=== PATIENT | female | born 1960 | race Two or more races ===

== ENCOUNTER 2017-07-21 09:34 | Inpatient (IN) | payer MEDICAID ==
--- NOTE | 2017-07-21 09:58 | ED Physician Chart ---
ED Chief Complaint/HPI - Patient Information Date Seen:: 07/21/17 Time Seen:: 09:48 Chief Complaint:: Cough History of Present Illness:: onset x 4 days of cough, dyspnea, fever, and congestion; no report of H/As, S/T , neck pain, C/P, Abd. Pain, A/N/V/D/C, chills, or urinary s/s Allergies:: Allergies Allergy/AdvReac Type Severity Reaction Status Date / Time No Known Allergies Allergy Verified 07/21/17 09:41 Vitals:: Vital Signs - 8 hr 07/21/17 09:48 Temp 97.3 F HR 88 RR 22 BP 119/74 O2 Sat % 98 Historian:: Patient Review:: Nurse's Note Reviewed ED Review of Systems - Review of Systems General/Constitutional: Fever, No chills, No weight loss, No weakness, No diaphoresis, No edema, No loss of appetite Skin: No skin lesions, No rash, No bruising Head: No headache, No light-headedness Eyes: No loss of vision, No pain, No diplopia ENT: No earache, Nasal drainage, No sore throat, No tinnitus Neck: No neck pain, No swelling, No thyromegaly, No stiffness, No mass noted Cardio Vascular: No chest pain, No palpitations, No PND, No orthopnea, No edema Pulmonary: SOB, Cough, No sputum, Wheezing GI: No nausea, No vomiting, No diarrhea, No pain, No melena, No hematochezia, No constipation, No hematemesis G/U: No dysuria, No frequency, No hematuria, No nacturia Electroformer: No vaginal discharge, No abnormal vaginal bleed, No contraction Musculoskeletal: No bone or joint pain, No back pain, No muscle pain Endocrine: No polyuria, No polydipsia Psychiatric: No prior psych history, No depression, No anxiety, No suicidal ideation, No homicidal ideation, No auditory hallucination, No visual hallucination Hematopoietic: No bruising, No lymphadenopathy Allergic/Immuno: No urticaria, No angioedema Neurological: No syncope, No focal symptoms, No weakness, No paresthesia, No headache, No seizure, No dizziness, No confusion, No vertigo ED Past Medical History - Past Medical History Obtainable: Yes Past Medical History: Asthma/COPD Family History: HTN Social History: Non Smoker, No Alcohol, No Drug Use, Surgical History: None Psychiatricy History: None Medication: Reviewed Family Medical History - Family Member Mother History Unknown: Yes ED Physical Exam - Physical Examination General/Constitutional: Awake, Well-developed, well-nourished, Alert, No distress, GCS 15, Non-toxic appearing, Ambulatory Head: Atraumatic Eyes: Lids, conjuctiva normal, PERRL, EOMI Skin: Nl inspection, No rash, No skin lesions, No ecchymosis, Well hydrated, No lymphadenopathy ENMT: External ears, nose nl, TM canals nl, Nasal exam nl, Lips, teeth, gums nl , Oropharynx nl, Tonsils nl Neck: Nontender, Full ROM w/o pain, No JVD, No nuchal rigidity, No bruit, No mass, No stridor Respiratory: Nl effort/Exclusion Other Respiratory comments:: Lungs: + Rales and Rhonchi Cardio Vascular: RRR, No murmur, gallop, rubs, NL S1 S2, Carotid/Femoral/Distal pulses equal bilaterally GI: No tenderness/rebounding/guarding, No organomegaly, No hernia, Normal BS's, Nondistended, No mass/bruits, No McBurney tenderness : No CVA tenderness Extremities: No tenderness or effusion, Full ROM, normal strength in all extremities, No edema, Normal digits & nails Neuro/Psych: Alert/oriented, DTR's symmetric, Normal sensory exam, Normal motor strength, Judgement/insight normal, Mood normal, Normal gait, No focal deficits Misc: Normal back, No paraspinal tenderness ED Labs/Radiology/EKG Results - Lab Results Comments:: K+: 2.8; LA: 2.16 - Radiology Results Comments:: CXR: + Infiltrate - EKG Interpretations EKG Time:: 10:01 Rate & Rhythm: 72; NSR Comments:: non-specific st-t changes ED Septic Shock - . Is Septic Shock (SBP<90, OR Lactate>4 mmol\L) present?: No - <6hrs of presentation: Vital Signs: Vital Signs - 8 hr 07/21/17 09:48 Temp 97.3 F HR 88 RR 22 BP 119/74 O2 Sat % 98 ED Reassessment (Disposition) - Reassessment Reassessment Condition:: Improved - Diagnosis Diagnosis:: Sepsis; Hypokalemia; PNA; Cough; Fever; Congestion - Aftercare/Follow up Instructions Aftercare/Follow-Up Instructions:: Counseled pt regarding lab results/diagnosis & need follow up, Counseled pt & family regarding lab results/diagnosis & need follow up - Patient Disposition Discharge/Transfer:: Acute Care w/in this hosp Accepting Physician:: Dr. Barba Time Called:: 1145 Time Responded:: 11:45 Admitted to:: Med/Surg Spoke to:: Dr. Barba Admitting Medical Physician:: Dr. Barba Condition at Disposition:: Stable, Improved
[2017-07-21] MEDS ORDERED: Sodium Chloride 0.9% 1,000 ML IV ONE (09:59)
[2017-07-21 10:29] LABS: % BASOPHILS 2.2 % (0.0-2.0); % EOSINOPHILS 2.6 % (0.0-5.0); % LYMPHOCYTES 26.6 % (20.0-50.0); % MONOCYTES 5.9 % (2.0-10.0); % NEUTROPHILS 62.7 % (40.0-80.0); BASOPHILE ABSOLUTE 0.2 Th/cumm (0-0.2); EOSINOPHILE ABSOLUTE 0.3 Th/cmm (0.1-0.4); HEMATOCRIT 41.2 % (41.0-60); LYMPHOCYTE ABSOLUTE 2.6 Th/cmm (1.5-3.0); MEAN CORPUSCULAR HEMOGLOBIN 30.9 pg (27.0-31.0); MEAN CORPUSCULAR HGB CONC 33.9 pg (28.0-36.0); MEAN PLATELET VOLUME 6.6 fl; MONOCYTE ABSOLUTE 0.6 Th/cmm (0.3-1.0); NEUTROPHILE ABSOLUTE 6.2 Th/cmm (1.8-8.0); PLATELET COUNT 334 Th/cmm (150-400); RED BLOOD COUNT 4.53 Mil/cmm (3.80-5.10); WHITE BLOOD COUNT 9.9 Th/cmm (4.8-10.8)
[2017-07-21 10:43] LABS: URINE MICROSCOPIC INDICATED? YES; URINE SOURCE MIDSTREAM
[2017-07-21 10:49] LABS: INR 0.95 (0.5-1.4); PROTHROMBIN TIME (TEST) 9.9 SECONDS (9.5-11.5)
[2017-07-21 10:51] LABS: ALB/GLOB RATIO 1.1 (1.0-1.8); ALBUMIN 3.3 gm/dL (3.7-5.3); ALKALINE PHOSPHATASE 71 U/L (34-104); ANION GAP 11.5 (7.0-16.0); BILIRUBIN,TOTAL 0.6 mg/dL (0.3-1.0); BUN - UREA NITROGEN 19 mg/dL (7-25); CALCIUM SERUM 8.8 mg/dL (8.6-10.3); CARBON DIOXIDE 26.3 mEq/L (21.0-31.0); CHLORIDE 103 mEq/L (98-107); CREATININE - SERUM 0.8 mg/dL (0.6-1.2); CREATININE KINASE 47 U/L (30-223); GFR AFRICAN-AMERICAN > 60.0 ml/min (>90); GFR NON AFRICAN-AMERICAN > 60.0 ml/min; GLUCOSE 114 mg/dL (70-105); SGOT 12 U/L (13-39); SGPT/ALT 13 U/L (7-52); SODIUM SERUM 138 mEq/L (136-145); TOTAL PROTEIN,SERUM 6.3 gm/dL (6.0-8.3)
[2017-07-21 10:53] LABS: POTASSIUM SERUM 2.8 mEq/L (3.5-5.1)
[2017-07-21 10:56] LABS: TROP I < 0.01 ng/mL (0.01-0.05)
[2017-07-21] MEDS ORDERED: Potassium Chloride 20 mEq ER Tab PO ONE ×2 (10:59→11:02)
[2017-07-21 11:02] LABS: URINE BILIRUBIN NEGATIVE (NEGATIVE); URINE BLOOD NEGATIVE (NEGATIVE); URINE CLARITY CLEAR (CLEAR); URINE COLOR YELLOW; URINE GLUCOSE (UA) NEGATIVE (NEGATIVE); URINE KETONE NEGATIVE (NEGATIVE); URINE LEUKOCYTE ESTERASE NEGATIVE (NEGATIVE); URINE NITRATE NEGATIVE (NEGATIVE); URINE PROTEIN NEGATIVE (NEGATIVE); URINE UROBILINOGEN 0.2 E.U./dL (0.2 - 1.0)
[2017-07-21 11:03] LABS: URINE BACTERIA OCCASIONAL /hpf (NONE SEEN); URINE EPITHELIAL CELLS RARE /lpf (FEW); URINE RBC 0-2 /hpf (0-5)
[2017-07-21] MEDS ORDERED: Levofloxacin 500mg/100mL 500 MG/100 ML BAG IV ONE ×2 (11:45→11:49)
--- NOTE | 2017-07-21 12:05 | Diagnostic Imaging Report ---
Portable chest x-ray History: Cough Allowing for portable technique the heart size is normal. No focal pulmonary parenchymal processes. No hilar or mediastinal abnormalities. Impression: No acute abnormalities.
[2017-07-21] MEDS ORDERED: Albuterol Nebulizer 2.5mg/3mL HHN PRN (15:24)
--- NOTE | 2017-07-21 17:12 | History & Physical ---
ADMIT DATE: 07/21/2017 HISTORY OF PRESENT ILLNESS: The patient came with increasing shortness of breath, cough, fever, chest congestion and was admitted for acute bronchitis, pneumonia. PAST MEDICAL HISTORY: Has a history of asthma, history of COPD. The patient is complaining of shortness of breath and cough. No bony pain, no bruising, no syncope and no other problems. REVIEW OF SYSTEMS: Otherwise, negative. PAST MEDICAL HISTORY: Again no history of smoking, drinking, history of hypertension and history of COPD. PHYSICAL EXAMINATION: GENERAL: The patient looks alert, oriented, elderly female, short of breath. HEAD: Normal. ENT: Normal. LUNGS: Bilateral rhonchi. CARDIOVASCULAR SYSTEM: S1, S2 heard. ABDOMEN: Soft. Bowel sounds are heard. LABORATORY DATA: Electrolytes showed potassium 2.8. Chest x-ray showed infiltrate, nonspecific ST-T changes. DIAGNOSES: Acute sepsis, septic pneumonia, acute bronchitis, history of COPD, history of hypertension, severe hypokalemia. PLAN: The patient is being admitted and we will treat her hypokalemia. We will give her IV antibiotics. We will have Pulmonary, Dr. Shabazz see the patient and I will follow the patient. JOB# [id number]
[2017-07-21] MEDS: Budesonide 0.5 Mg/2 mL Ud HHN SCH (20:19)
[2017-07-22 06:05] LABS: % BASOPHILS 0.2 % (0.0-2.0); % EOSINOPHILS 4.2 % (0.0-5.0); % LYMPHOCYTES 25.1 % (20.0-50.0); % MONOCYTES 7.5 % (2.0-10.0); EOSINOPHILE ABSOLUTE 0.4 Th/cmm (0.1-0.4); HEMATOCRIT 42.2 % (41.0-60); HEMOGLOBIN 14.1 gm/dL (12-16); LYMPHOCYTE ABSOLUTE 2.2 Th/cmm (1.5-3.0); MEAN CELL VOLUME 91.3 fl (81-100); MEAN CORPUSCULAR HEMOGLOBIN 30.4 pg (27.0-31.0); MEAN CORPUSCULAR HGB CONC 33.3 pg (28.0-36.0); MEAN PLATELET VOLUME 6.7 fl; MONOCYTE ABSOLUTE 0.7 Th/cmm (0.3-1.0); NEUTROPHILE ABSOLUTE 5.6 Th/cmm (1.8-8.0); PLATELET COUNT 321 Th/cmm (150-400); RED BLOOD COUNT 4.63 Mil/cmm (3.80-5.10); RED CELL DISTRIBUTION WIDTH 13.4 % (11.5-20.0); WHITE BLOOD COUNT 8.9 Th/cmm (4.8-10.8)
--- NOTE | 2017-07-22 06:57 | Consultation ---
DATE OF CONSULTATION: 07/21/[address] Barba. Thank you Dr. Barba for this consultation. HISTORY OF PRESENT ILLNESS: This is a 56-year-old female who presented with cough and congestion for a few days and was admitted for treatment and management. The patient was found to have no acute infiltrate. On presentation, the patient mentioned she has some allergies in the lung and she used to have some sort of asthma and uses inhalers, but nothing recent. PAST MEDICAL HISTORY: As above. SOCIAL HISTORY: Denies smoking, drinking. Stated exposure secondhand smoking from the . PHYSICAL EXAMINATION: GENERAL: Awake, alert, not in acute distress. VITAL SIGNS: Temperature 97.5, pulse 70, respiration is 20, blood pressure 126/82, saturation 97% on room air. HEENT: Atraumatic, normocephalic. Pupils react to light and accommodation. Ears, nose and throat are normal. NECK: Supple. No JVD. CHEST: There are a few rhonchi in bases, no wheezing. HEART: Regular rate and rhythm. ABDOMEN: Soft. EXTREMITIES: No edema. LABORATORY DATA: WBC is 9.9, hemoglobin 14.0. Sodium is 130, potassium 2.8, BUN is 19, creatinine 0.8, lactate is 2.16. IMPRESSION: This is a 56-year-old female, possibly with acute bronchitis or underlying bronchospasm and asthma. PLAN: 1. IV antibiotics. 2. Nebulizer treatments. 3. Pulmicort nebulizer. Decrease IV fluids and hopefully can be discharged tomorrow if stable. JOB# [id number]
[2017-07-22 07:00] LABS: BUN - UREA NITROGEN 19 mg/dL (7-25); CALCIUM SERUM 9.1 mg/dL (8.6-10.3); CHLORIDE 104 mEq/L (98-107); CHOLESTEROL 156 mg/dL (<200); CREATININE - SERUM 0.8 mg/dL (0.6-1.2); GFR AFRICAN-AMERICAN > 60.0 ml/min (>90); GFR NON AFRICAN-AMERICAN > 60.0 ml/min; GLUCOSE 101 mg/dL (70-105); HDL -HIGH DENSITY LIPOPROTEIN 43 mg/dL (23-92); SODIUM SERUM 138 mEq/L (136-145); TRIGLYCERIDES 151 mg/dL (<150)
[2017-07-22] MEDS: Budesonide 0.5 Mg/2 mL Ud HHN SCH ×2 (07:46→19:23)
[2017-07-22] MEDS: Levofloxacin 500mg/100mL 500 MG/100 ML BAG IV SCH (11:58)
--- NOTE | 2017-07-22 15:25 | General Progress Note ---
Subjective - Review of Systems Events since last encounter: c/o mild sob + cough no fever no pain Objective - Results Result Diagrams: 07/22/17 05:20 07/22/17 05:20 Recent Labs: Laboratory Last Values WBC 8.9 Th/cmm (4.8-10.8) 07/22/17 05:20 RBC 4.63 Mil/cmm (3.80-5.10) 07/22/17 05:20 Hgb 14.1 gm/dL (12-16) 07/22/17 05:20 Hct 42.2 % (41.0-60) 07/22/17 05:20 MCV 91.3 fl (81-100) 07/22/17 05:20 MCH 30.4 pg (27.0-31.0) 07/22/17 05:20 MCHC Differential 33.3 pg (28.0-36.0) 07/22/17 05:20 RDW 13.4 % (11.5-20.0) 07/22/17 05:20 Plt Count 321 Th/cmm (150-400) 07/22/17 05:20 MPV 6.7 fl 07/22/17 05:20 Neutrophils % 63.0 % (40.0-80.0) 07/22/17 05:20 Lymphocytes % 25.1 % (20.0-50.0) 07/22/17 05:20 Monocytes % 7.5 % (2.0-10.0) 07/22/17 05:20 Eosinophils % 4.2 % (0.0-5.0) 07/22/17 05:20 Basophils % 0.2 % (0.0-2.0) 07/22/17 05:20 PT 9.9 SECONDS (9.5-11.5) 07/21/17 10:10 INR 0.95 (0.5-1.4) 07/21/17 10:10 PTT (Actin FS) 23.5 SECONDS (26.0-38.0) L 07/21/17 10:10 Sodium 138 mEq/L (136-145) 07/22/17 05:20 Potassium 4.0 mEq/L (3.5-5.1) 07/22/17 05:20 Chloride 104 mEq/L (98-107) 07/22/17 05:20 Carbon Dioxide 27.0 mEq/L (21.0-31.0) 07/22/17 05:20 Anion Gap 11.0 (7.0-16.0) 07/22/17 05:20 BUN 19 mg/dL (7-25) 07/22/17 05:20 Creatinine 0.8 mg/dL (0.6-1.2) 07/22/17 05:20 Est GFR ( Amer) > 60.0 ml/min (>90) 07/22/17 05:20 Est GFR (Non-Af Amer) > 60.0 ml/min 07/22/17 05:20 BUN/Creatinine Ratio 23.8 07/22/17 05:20 Glucose 101 mg/dL (70-105) 07/22/17 05:20 Whole Bld Lactic Acid 0.66 mmol/L (0.60-1.99) 07/21/17 12:10 Calcium 9.1 mg/dL (8.6-10.3) 07/22/17 05:20 Total Bilirubin 0.6 mg/dL (0.3-1.0) 07/21/17 10:10 AST 12 U/L (13-39) L 07/21/17 10:10 ALT 13 U/L (7-52) 07/21/17 10:10 Alkaline Phosphatase 71 U/L (34-104) 07/21/17 10:10 Creatine Kinase 47 U/L (30-223) 07/21/17 10:10 Troponin I < 0.01 ng/mL (0.01-0.05) L 07/21/17 10:10 Total Protein 6.3 gm/dL (6.0-8.3) 07/21/17 10:10 Albumin 3.3 gm/dL (3.7-5.3) L 07/21/17 10:10 Globulin 3.0 gm/dL 07/21/17 10:10 Albumin/Globulin Ratio 1.1 (1.0-1.8) 07/21/17 10:10 Triglycerides 151 mg/dL (<150) H 07/22/17 05:20 Cholesterol 156 mg/dL (<200) 07/22/17 05:20 LDL Cholesterol Direct 93 mg/dL (75-193) 07/22/17 05:20 HDL Cholesterol 43 mg/dL (23-92) 07/22/17 05:20 TSH 2.30 uIU/ml (0.34-5.60) 07/22/17 05:20 Serum , Qual NEGATIVE (NEGATIVE) 07/21/17 10:10 Urine Source MIDSTREAM 07/21/17 10:30 Urine Color YELLOW 07/21/17 10:30 Urine Clarity CLEAR (CLEAR) 07/21/17 10:30 Urine pH 5.0 (4.6 - 8.0) 07/21/17 10:30 Ur Specific [place] 1.015 (1.005-1.030) 07/21/17 10:30 Urine Protein NEGATIVE mg/dL (NEGATIVE) 07/21/17 10:30 Urine Glucose (UA) NEGATIVE mg/dL (NEGATIVE) 07/21/17 10:30 Urine Ketones NEGATIVE mg/dL (NEGATIVE) 07/21/17 10:30 Urine Blood NEGATIVE (NEGATIVE) 07/21/17 10:30 Urine Nitrate NEGATIVE (NEGATIVE) 07/21/17 10:30 Urine Bilirubin NEGATIVE (NEGATIVE) 07/21/17 10:30 Urine Urobilinogen 0.2 E.U./dL (0.2 - 1.0) 07/21/17 10:30 Ur Leukocyte Esterase NEGATIVE (NEGATIVE) 07/21/17 10:30 Urine RBC 0-2 /hpf (0-5) 07/21/17 10:30 Urine WBC 2-5 /hpf (0-5) 07/21/17 10:30 Ur Epithelial Cells RARE /lpf (FEW) 07/21/17 10:30 Urine Bacteria OCCASIONAL /hpf (NONE SEEN) 07/21/17 10:30 - Physical Exam Vitals and I&O: Vital Signs Temp 97.6 F 07/22/17 11:53 Pulse 83 07/22/17 11:53 Resp 18 07/22/17 11:53 BP 111/61 07/22/17 11:53 Pulse Ox 97 07/22/17 11:53 Intake & Output 07/21/17 07/22/17 07/22/17 18:59 06:59 18:59 Intake Total 120 Balance 120 Weight (lbs) 75.523 kg Intake: Oral 120 Other: # Voids 3 # Bowel Movements 0 Stool Characteristics Hard Hard Active Medications: Current Medications Acetaminophen (Tylenol) 650 mg PO Q4H PRN PRN Reason: Pain (Mild) Stop: 09/20/17 06:06 Albuterol Sulfate (Albuterol 2.5mg/3ml Neb Ud) 2.5 mg HHN Q4HRT PRN PRN Reason: Congestion Stop: 09/19/17 15:23 Budesonide (Pulmicort) 0.5 mg HHN BIDRT [facility] Stop: 09/19/17 18:59 Last Admin: 07/22/17 07:46 Dose: 0.5 mg Levofloxacin (Levaquin Pb) 500 mg in 100 mls @ 100 mls/hr IV Q24H [facility] Stop: 09/20/17 11:59 Last Admin: 07/22/17 11:58 Dose: 100 mls/hr Montelukast Sodium (Singulair) 10 mg PO DAILY [facility] Stop: 09/20/17 08:59 Last Admin: 07/22/17 08:47 Dose: 10 mg Prednisone (Deltasone) 10 mg PO DAILY [facility] Stop: 09/20/17 08:59 Last Admin: 07/22/17 08:47 Dose: 10 mg Tramadol HCl (Ultram) 50 mg PO Q6HR PRN PRN Reason: Pain (Severe) Stop: 09/20/17 06:07 Last Admin: 07/22/17 06:27 Dose: 50 mg - Procedures Procedures: Procedures Procedure Code Date EMERGENCY DEPT VISIT 96280 08/21/11 INJECT/INFUSE NEC 99.29 01/01/12 Assessment/Plan - Problem List Patient Problems: All Active Problems COUGH AND CONGESTION WITH DYSPNEA (Acute)
[2017-07-23] MEDS: Albuterol Nebulizer 2.5mg/3mL HHN SCH ×3 (01:22→13:57)
[2017-07-23 05:47] LABS: HEMATOCRIT 42.7 % (41.0-60); HEMOGLOBIN 14.4 gm/dL (12-16); MEAN CELL VOLUME 91.4 fl (81-100); MEAN CORPUSCULAR HEMOGLOBIN 30.9 pg (27.0-31.0); MEAN CORPUSCULAR HGB CONC 33.8 pg (28.0-36.0); MEAN PLATELET VOLUME 6.5 fl; PLATELET COUNT 335 Th/cmm (150-400); RED BLOOD COUNT 4.67 Mil/cmm (3.80-5.10); RED CELL DISTRIBUTION WIDTH 13.2 % (11.5-20.0)
[2017-07-23 05:53] LABS: WHITE BLOOD COUNT 14.1 Th/cmm (4.8-10.8)
[2017-07-23 06:59] LABS: TOTAL CELLS COUNTED 100
[2017-07-23 07:00] LABS: BAND NEUTROPHILE 1 % (0-10); EOSINOPHIL 2 % (0-5); LYMPHOCYTE 16 % (20-50); MONOCYTE 5 % (2-10); NEUTROPHILS 76 % (40-80)
[2017-07-23 07:05] LABS: ANION GAP 13.3 (7.0-16.0); BUN - UREA NITROGEN 18 mg/dL (7-25); CALCIUM SERUM 9.5 mg/dL (8.6-10.3); CARBON DIOXIDE 26.7 mEq/L (21.0-31.0); CHLORIDE 101 mEq/L (98-107); CREATININE - SERUM 0.7 mg/dL (0.6-1.2); GFR AFRICAN-AMERICAN > 60.0 ml/min (>90); GFR NON AFRICAN-AMERICAN > 60.0 ml/min; GLUCOSE 105 mg/dL (70-105); SODIUM SERUM 137 mEq/L (136-145)
[2017-07-23] MEDS: Budesonide 0.5 Mg/2 mL Ud HHN SCH (07:06)
[2017-07-23] MEDS: Levofloxacin 500mg/100mL 500 MG/100 ML BAG IV SCH (11:12)
--- NOTE | 2017-07-23 13:45 | Internal Medicine Prog Note ---
Internal Medicine Subjective - Subjective Service Date: 07/23/17 Patient seen and examined:: with staff Patient is:: awake Per staff patient has:: tolerating meds Internal Medicine Objective - Results Result Diagrams: 07/23/17 05:30 07/23/17 05:30 Recent Labs: Laboratory Last Values WBC 14.1 Th/cmm (4.8-10.8) H D 07/23/17 05:30 RBC 4.67 Mil/cmm (3.80-5.10) 07/23/17 05:30 Hgb 14.4 gm/dL (12-16) 07/23/17 05:30 Hct 42.7 % (41.0-60) 07/23/17 05:30 MCV 91.4 fl (81-100) 07/23/17 05:30 MCH 30.9 pg (27.0-31.0) 07/23/17 05:30 MCHC Differential 33.8 pg (28.0-36.0) 07/23/17 05:30 RDW 13.2 % (11.5-20.0) 07/23/17 05:30 Plt Count 335 Th/cmm (150-400) 07/23/17 05:30 MPV 6.5 fl 07/23/17 05:30 Neutrophils % 63.0 % (40.0-80.0) 07/22/17 05:20 Band Neutrophils % 1 % (0-10) 07/23/17 05:30 Lymphocytes % 25.1 % (20.0-50.0) 07/22/17 05:20 Monocytes % 7.5 % (2.0-10.0) 07/22/17 05:20 Eosinophils % 4.2 % (0.0-5.0) 07/22/17 05:20 Basophils % 0.2 % (0.0-2.0) 07/22/17 05:20 Neutrophils (Manual) 76 % (40-80) 07/23/17 05:30 Lymphocytes 16 % (20-50) L 07/23/17 05:30 Monocytes 5 % (2-10) 07/23/17 05:30 Eosinophils 2 % (0-5) 07/23/17 05:30 PT 9.9 SECONDS (9.5-11.5) 07/21/17 10:10 INR 0.95 (0.5-1.4) 07/21/17 10:10 PTT (Actin FS) 23.5 SECONDS (26.0-38.0) L 07/21/17 10:10 Sodium 137 mEq/L (136-145) 07/23/17 05:30 Potassium 4.0 mEq/L (3.5-5.1) 07/23/17 05:30 Chloride 101 mEq/L (98-107) 07/23/17 05:30 Carbon Dioxide 26.7 mEq/L (21.0-31.0) 07/23/17 05:30 Anion Gap 13.3 (7.0-16.0) 07/23/17 05:30 BUN 18 mg/dL (7-25) 07/23/17 05:30 Creatinine 0.7 mg/dL (0.6-1.2) 07/23/17 05:30 Est GFR ( Amer) > 60.0 ml/min (>90) 07/23/17 05:30 Est GFR (Non-Af Amer) > 60.0 ml/min 07/23/17 05:30 BUN/Creatinine Ratio 25.7 07/23/17 05:30 Glucose 105 mg/dL (70-105) 07/23/17 05:30 Whole Bld Lactic Acid 0.66 mmol/L (0.60-1.99) 07/21/17 12:10 Calcium 9.5 mg/dL (8.6-10.3) 07/23/17 05:30 Total Bilirubin 0.6 mg/dL (0.3-1.0) 07/21/17 10:10 AST 12 U/L (13-39) L 07/21/17 10:10 ALT 13 U/L (7-52) 07/21/17 10:10 Alkaline Phosphatase 71 U/L (34-104) 07/21/17 10:10 Creatine Kinase 47 U/L (30-223) 07/21/17 10:10 Troponin I < 0.01 ng/mL (0.01-0.05) L 07/21/17 10:10 Total Protein 6.3 gm/dL (6.0-8.3) 07/21/17 10:10 Albumin 3.3 gm/dL (3.7-5.3) L 07/21/17 10:10 Globulin 3.0 gm/dL 07/21/17 10:10 Albumin/Globulin Ratio 1.1 (1.0-1.8) 07/21/17 10:10 Triglycerides 151 mg/dL (<150) H 07/22/17 05:20 Cholesterol 156 mg/dL (<200) 07/22/17 05:20 LDL Cholesterol Direct 93 mg/dL (75-193) 07/22/17 05:20 HDL Cholesterol 43 mg/dL (23-92) 07/22/17 05:20 TSH 2.30 uIU/ml (0.34-5.60) 07/22/17 05:20 Serum , Qual NEGATIVE (NEGATIVE) 07/21/17 10:10 Urine Source MIDSTREAM 07/21/17 10:30 Urine Color YELLOW 07/21/17 10:30 Urine Clarity CLEAR (CLEAR) 07/21/17 10:30 Urine pH 5.0 (4.6 - 8.0) 07/21/17 10:30 Ur Specific [place] 1.015 (1.005-1.030) 07/21/17 10:30 Urine Protein NEGATIVE mg/dL (NEGATIVE) 07/21/17 10:30 Urine Glucose (UA) NEGATIVE mg/dL (NEGATIVE) 07/21/17 10:30 Urine Ketones NEGATIVE mg/dL (NEGATIVE) 07/21/17 10:30 Urine Blood NEGATIVE (NEGATIVE) 07/21/17 10:30 Urine Nitrate NEGATIVE (NEGATIVE) 07/21/17 10:30 Urine Bilirubin NEGATIVE (NEGATIVE) 07/21/17 10:30 Urine Urobilinogen 0.2 E.U./dL (0.2 - 1.0) 07/21/17 10:30 Ur Leukocyte Esterase NEGATIVE (NEGATIVE) 07/21/17 10:30 Urine RBC 0-2 /hpf (0-5) 07/21/17 10:30 Urine WBC 2-5 /hpf (0-5) 07/21/17 10:30 Ur Epithelial Cells RARE /lpf (FEW) 07/21/17 10:30 Urine Bacteria OCCASIONAL /hpf (NONE SEEN) 07/21/17 10:30 - Physical Exam Vitals and I&O: Vital Signs Temp 97.5 F 07/23/17 12:00 Pulse 80 07/23/17 12:00 Resp 18 07/23/17 12:00 BP 108/64 07/23/17 12:00 Pulse Ox 95 07/23/17 12:00 Intake & Output 07/22/17 07/23/17 07/23/17 18:59 06:59 18:59 Intake Total 1100 500 Output Total 600 Balance 1100 -100 Weight (lbs) 169 lb 4.8 oz 168 lb Intake: Intake, IV Amount 100 Levofloxacin 500mg/100mL 100 500 mg In 100 ml @ 100 mls/hr IV Q24H [facility] Rx#: [id number] Oral 1000 500 Tube Feeding 0 Output: Urine 600 Stool 0 Other: # Voids 3 3 # Bowel Movements 1 0 Active Medications: Current Medications Acetaminophen (Tylenol) 650 mg PO Q4H PRN PRN Reason: Pain (Mild) Stop: 09/20/17 06:06 Last Admin: 07/23/17 05:34 Dose: 650 mg Albuterol Sulfate (Albuterol 2.5mg/3ml Neb Ud) 2.5 mg HHN Q6HRT [facility] Stop: 09/21/17 00:59 Last Admin: 07/23/17 07:06 Dose: 2.5 mg Budesonide (Pulmicort) 0.5 mg HHN BIDRT [facility] Stop: 09/19/17 18:59 Last Admin: 07/23/17 07:06 Dose: 0.5 mg Guaifenesin (Mucinex) 600 mg PO Q12HR [facility] Stop: 09/20/17 20:59 Last Admin: 07/23/17 09:26 Dose: 600 mg Levofloxacin (Levaquin Pb) 500 mg in 100 mls @ 100 mls/hr IV Q24H [facility] Stop: 09/20/17 11:59 Last Admin: 07/23/17 11:12 Dose: 100 mls/hr Montelukast Sodium (Singulair) 10 mg PO DAILY [facility] Stop: 09/20/17 08:59 Last Admin: 07/23/17 09:26 Dose: 10 mg Prednisone (Deltasone) 10 mg PO DAILY [facility] Stop: 09/20/17 08:59 Last Admin: 07/23/17 09:26 Dose: 10 mg Tramadol HCl (Ultram) 50 mg PO Q6HR PRN PRN Reason: Pain (Severe) Stop: 09/20/17 06:07 Last Admin: 07/22/17 06:27 Dose: 50 mg General: alert HEENT: NC/AT, PERRLA Neck: Supple Lungs: CTAB Cardiovascular: RRR, Normal S1, Normal S2 Neurological: no change - Procedures Procedures: Procedures Procedure Code Date EMERGENCY DEPT VISIT 45975 08/21/11 INJECT/INFUSE NEC 99.29 01/01/12 Internal Medicine Assmt/Plan - Assessment Assessment: acute sepsis septic pna acute bronchitis hx copd hx htn severe hypokalemia - Plan Plan: ivabx monitor glucose continue current orders
--- NOTE | 2017-07-31 21:58 | Discharge Summary ---
DATE OF DISCHARGE: 07/23/2017 The patient was admitted on 07/21/2017 and the patient was discharged on 07/23/2017 at [facility]. The patient's admitting diagnoses are pneumonia, bronchitis, history of COPD, history of hypertension, history of hyperkalemia. The patient was given IV antibiotic and breathing treatment. The patient felt better. The patient was in stable condition on 07/23/2017. FINAL DIAGNOSES: Pneumonia, improved; hypertension is under control; and history of COPD. The patient was discharged on p.o. antibiotics and p.o. medication. . Activity as tolerated. The patient was advised to come back and see me in 2 days. CONDITION AT TIME OF DISCHARGE: Stable. JOB# [id number]
== END 2017-07-23 15:55 | disposition home or self-care (01) | DRG 720 ==
LOC: ER 09:34 → MSI 13:49
PROVIDERS: ADMIT Internal Medicine; ATTEND Internal Medicine
DX: A41.9 Sepsis, unspecified organism (principal); J18.9 Pneumonia, unspecified organism; J20.9 Acute bronchitis, unspecified; J44.0 Chronic obstructive pulmonary disease with (acute) lower respiratory infection; I10 Essential (primary) hypertension; E87.6 Hypokalemia; E44.1 Mild protein-calorie malnutrition; Z82.49 Family history of ischemic heart disease and other diseases of the circulatory system; Z68.33 Body mass index [BMI] 33.0-33.9, adult
CPT/HCPCS: 36415-UA; 71045-TC; 80048-TC; 80053-TC; 80061-TC; 81001-TC; 82550-TC; 83605; 84443-TC; 84484-TC; 84703-TC; 85007-TC; 85025-TC; 85027-TC; 85610-TC; 85730-TC; 93005; 94640; 94760; J1956; J7030; J7613; Z7610

== ENCOUNTER 2018-02-22 08:47 | Emergency (ER) | payer MEDICAID ==
[2018-02-22] MEDS ORDERED: Lactated Ringer 1,000 ML IV ONE ×2 (09:18→11:18)
[2018-02-22 10:00] LABS: % LYMPHOCYTES 12.7 % (20.0-50.0); % MONOCYTES 4.7 % (2.0-10.0); % NEUTROPHILS 80.6 % (40.0-80.0); EOSINOPHILE ABSOLUTE 0.2 Th/cmm (0.1-0.4); HEMATOCRIT 39.7 % (41.0-60); HEMOGLOBIN 13.7 gm/dL (12-16); LYMPHOCYTE ABSOLUTE 1.2 Th/cmm (1.5-3.0); MEAN CELL VOLUME 90.2 fl (81-100); MEAN CORPUSCULAR HEMOGLOBIN 31.2 pg (27.0-31.0); MEAN CORPUSCULAR HGB CONC 34.5 pg (28.0-36.0); MEAN PLATELET VOLUME 6.8 fl; MONOCYTE ABSOLUTE 0.4 Th/cmm (0.3-1.0); NEUTROPHILE ABSOLUTE 7.6 Th/cmm (1.8-8.0); PLATELET COUNT 288 Th/cmm (150-400); RED CELL DISTRIBUTION WIDTH 12.8 % (11.5-20.0); WHITE BLOOD COUNT 9.4 Th/cmm (4.8-10.8)
[2018-02-22 10:07] LABS: ALB/GLOB RATIO 1.3 (1.0-1.8); ALKALINE PHOSPHATASE 69 U/L (34-104); AMYLASE SERUM 93 U/L (29-103); ANION GAP 11.4 (7.0-16.0); BILIRUBIN,TOTAL 0.4 mg/dL (0.3-1.0); BUN - UREA NITROGEN 23 mg/dL (7-25); CALCIUM SERUM 9.4 mg/dL (8.6-10.3); CARBON DIOXIDE 23.4 mEq/L (21.0-31.0); CHLORIDE 105 mEq/L (98-107); CREATININE - SERUM 0.8 mg/dL (0.6-1.2); GFR AFRICAN-AMERICAN > 60.0 ml/min (>90); GFR NON AFRICAN-AMERICAN > 60.0 ml/min; GLUCOSE 126 mg/dL (70-105); LIPASE 33 U/L (11-82); PHOSPHOROUS 3.4 mg/dL (2.5-5.0); POTASSIUM SERUM 3.8 mEq/L (3.5-5.1); SGOT 17 U/L (13-39); SGPT/ALT 16 U/L (7-52); SODIUM SERUM 136 mEq/L (136-145); TOTAL PROTEIN,SERUM 7.1 gm/dL (6.0-8.3)
--- NOTE | 2018-02-22 10:42 | ED Physician Chart ---
ED Chief Complaint/HPI - Patient Information Date Seen:: 02/22/18 Time Seen:: 08:57 Chief Complaint:: dizziness & epigastric pain History of Present Illness:: dizziness & epigastric pain. Recent fatty food intolerance. Allergies:: Allergies Allergy/AdvReac Type Severity Reaction Status Date / Time No Known Allergies Allergy Verified 07/21/17 09:41 Vitals:: Vital Signs - 8 hr 02/22/18 02/22/18 02/22/18 08:57 09:56 10:28 Temp 98.7 F 98.2 F 98.3 F HR 67 65 85 RR 16 18 19 BP 120/65 114/61 103/61 O2 Sat % 96 99 94 Historian:: Patient, Family Member Review:: Nurse's Note Reviewed ED Review of Systems - Review of Systems General/Constitutional: No fever, No chills, No weight loss, No weakness, No diaphoresis, No edema, No loss of appetite Skin: No skin lesions, No rash, No bruising Head: No headache, No light-headedness Eyes: No loss of vision, No pain, No diplopia, Other (left eye problems with corneal scarring) ENT: No earache, No nasal drainage, No sore throat, No tinnitus Neck: No neck pain, No swelling, No thyromegaly, No stiffness, No mass noted Cardio Vascular: No chest pain, No palpitations, No PND, No orthopnea, No edema Pulmonary: No SOB, No cough, No sputum, No wheezing GI: No nausea, No vomiting, No diarrhea, Pain, No melena, No hematochezia, No constipation, No hematemesis G/U: No dysuria, No frequency, No hematuria Musculoskeletal: No bone or joint pain, No back pain, No muscle pain Endocrine: No polyuria, No polydipsia Psychiatric: No prior psych history, No depression, No anxiety, No suicidal ideation Allergic/Immuno: No urticaria, No angioedema Neurological: Dizziness ED Past Medical History - Past Medical History Obtainable: Yes Past Medical History: Other (left eye corneal scarring) Family Medical History - Family Member Mother History Unknown: Yes Ethnicity: Living Status: Still Living Hx Family Cancer: No Hx Family Coronary Artery Disease: No Hx Family Congestive Heart Failure: No Hx Family Hypertension: Yes Hx Family Stroke: No Hx Family Diabetes: No Hx Family Seizures: No Hx Family Dementia: No Hx Family AIDS: No Hx Family HIV: No Hx Family COPD: No Hx Family Hepatitis: No Hx Family Psychiatric Problems: No Hx Family Tuberculosis: No FATHER History Unknown: Yes Ethnicity: Living Status: Still Living Hx Family Cancer: No Hx Family Coronary Artery Disease: No Hx Family Congestive Heart Failure: No Hx Family Hypertension: No Hx Family Stroke: No Hx Family Diabetes: No Hx Family Seizures: No Hx Family Dementia: No Hx Family AIDS: No Hx Family HIV: No Hx Family COPD: No Hx Family Hepatitis: No Hx Family Psychiatric Problems: No Hx Family Tuberculosis: No ED Physical Exam - Physical Examination General/Constitutional: Awake, Well-developed, well-nourished, Alert, No distress, GCS 15, Non-toxic appearing, Ambulatory Head: Atraumatic Eyes: PERRL, EOMI Other Eyes comments:: left eye corneal scarring fluorescin exam negative for abrasion or ulceration. Skin: Nl inspection, No rash, No skin lesions, No ecchymosis, Well hydrated, No lymphadenopathy ENMT: External ears, nose nl, TM canals nl, Nasal exam nl, Lips, teeth, gums nl Neck: Nontender, Full ROM w/o pain, No JVD, No nuchal rigidity, No bruit, No mass, No stridor Respiratory: Nl effort/Exclusion, Clear to Auscultation, No Wheeze/Rhonchi/Rales Cardio Vascular: RRR, No murmur, gallop, rubs, NL S1 S2 GI: No tenderness/rebounding/guarding, No organomegaly, No hernia, Normal BS's, Nondistended, No mass/bruits, No McBurney tenderness Other GI comments:: no peritoneal signs. : No CVA tenderness Extremities: No tenderness or effusion, Full ROM, normal strength in all extremities, No edema, Normal digits & nails Neuro/Psych: Alert/oriented, Normal sensory exam, Normal motor strength, Judgement/insight normal, Mood normal, Normal gait, No focal deficits Other Neuro/Psych comments:: all tests for vertigo are negative. Misc: Normal back, No paraspinal tenderness ED Labs/Radiology/EKG Results - Lab Results Results: Laboratory Tests 02/22/18 02/22/18 02/22/18 09:32 09:40 09:40 WBC 9.4 RBC 4.40 Hgb 13.7 Hct 39.7 L MCV 90.2 MCH 31.2 H MCHC Differential 34.5 RDW 12.8 Plt Count 288 MPV 6.8 Neutrophils % 80.6 H Lymphocytes % 12.7 L Monocytes % 4.7 Eosinophils % 2.0 Basophils % 0.0 Sodium 136 Potassium 3.8 Chloride 105 Carbon Dioxide 23.4 Anion Gap 11.4 BUN 23 Creatinine 0.8 Est GFR ( Amer) > 60.0 Est GFR (Non-Af Amer) > 60.0 BUN/Creatinine Ratio 28.8 Glucose 126 H Calcium 9.4 Phosphorus 3.4 Magnesium Total Bilirubin 0.4 AST 17 ALT 16 Alkaline Phosphatase 69 Troponin I Total Protein 7.1 Albumin 4.0 Globulin 3.1 Albumin/Globulin Ratio 1.3 Amylase 93 Lipase 33 Urine Source CLEAN C Urine Color YELLOW Urine Clarity CLEAR Urine pH 6.0 Ur Specific [place] >= 1.030 Urine Protein NEGATIVE Urine Glucose (UA) NEGATIVE Urine Ketones NEGATIVE Urine Blood NEGATIVE Urine Nitrate NEGATIVE Urine Bilirubin NEGATIVE Urine Urobilinogen 0.2 Ur Leukocyte Esterase NEGATIVE 02/22/18 02/22/18 09:40 09:40 WBC RBC Hgb Hct MCV MCH MCHC Differential RDW Plt Count MPV Neutrophils % Lymphocytes % Monocytes % Eosinophils % Basophils % Sodium Potassium Chloride Carbon Dioxide Anion Gap BUN Creatinine Est GFR ( Amer) Est GFR (Non-Af Amer) BUN/Creatinine Ratio Glucose Calcium Phosphorus Magnesium 2.1 Total Bilirubin AST ALT Alkaline Phosphatase Troponin I < 0.01 L Total Protein Albumin Globulin Albumin/Globulin Ratio Amylase Lipase Urine Source Urine Color Urine Clarity Urine pH Ur Specific [place] Urine Protein Urine Glucose (UA) Urine Ketones Urine Blood Urine Nitrate Urine Bilirubin Urine Urobilinogen Ur Leukocyte Esterase ED Assessment - Assessment General Assessment: EKG from 9:52:17 a.m.: normal sinus rhythm, flipped t wave in V1. CT of head is negative. Assessment/Comments:: abdominal ultrasound results: within normal limits per reading of the geodetic technician. patient felt dizzy with change in position. patient no longer feels dizzy after IV hydration. She wants to go home. ED Septic Shock - . Is Septic Shock (SBP<90, OR Lactate>4 mmol\L) present?: No - <6hrs of presentation: Vital Signs: Vital Signs - 8 hr 02/22/18 02/22/18 02/22/18 08:57 09:56 10:28 Temp 98.7 F 98.2 F 98.3 F HR 67 65 85 RR 16 18 19 BP 120/65 114/61 103/61 O2 Sat % 96 99 94 ED Reassessment (Disposition) - Reassessment Reassessment Condition:: Improved - Diagnosis Diagnosis:: Epigastric pain, resolved. Dehydration. Orthostasis. No signs of vertigo. 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
[2018-02-22 11:37] LABS: AMPHETAMINE URINE NEGATIVE (NEGATIVE); BARBITURATES URINE NEGATIVE (NEGATIVE); BENZODIAZEPINES QUAL URINE NEGATIVE (NEGATIVE); CANNABINOID THC NEGATIVE (NEGATIVE); COCAINE METABOLITE QUAL URINE NEGATIVE (NEGATIVE); METHADONE URINE NEGATIVE (NEGATIVE); METHAMPHETAMINES QUAL URINE NEGATIVE (NEGATIVE); OPIATES (MORPHINE) QUAL. URINE NEGATIVE (NEGATIVE); PHENCYCLIDINE (PCP) URINE NEGATIVE (NEGATIVE); TRICYCLICS (TCA) QUAL. URINE NEGATIVE (NEGATIVE)
--- NOTE | 2018-02-22 12:35 | Diagnostic Imaging Report ---
Exam: Ultrasound summation the abdomen. HISTORY: Epigastric pain. Findings: Real-time ultrasound summation abdomen performed multiple planes. The study demonstrates normal echogenicity liver parenchyma. The gallbladder free of calculi the common bile duct measures 3 mm. The pancreas poorly seen. There is no evidence of obstructive uropathy or nephrolithiasis. Right kidney measures 9.3 x 4.5 cm diameter Left kidney measures 10.8 x 5.4 submitted intact. The spleen is intact no free fluid is noted. IMPRESSION: Unremarkable examination of the abdomen.
--- NOTE | 2018-02-22 12:37 | Diagnostic Imaging Report ---
CT scan of the brain without contrast History: Dizziness Total DLP equals 537 CTDI equals 32.1 Axial sections were obtained from the base of the skull to the vertex. There is a normal ventricular system size. No focal parenchymal lesions are seen. No evidence of any mass effect or shift of midline structures. No extra-axial masses or abnormal fluid collections. Impression: Negative examination
[2018-02-22] MEDS ORDERED: Tetracaine 0.5% Ophth Soln 15 mL Soln EACH EYE ONE (13:02)
[2018-02-22] MEDS ORDERED: Fluorescein Sodium 1 mg Ophth Strip LEFT EYE ONE (13:02)
[2018-02-22] MEDS ORDERED: Fluorescein Sodium 1 mg Ophth Strip ONE (13:09)
[2018-02-22] MEDS ORDERED: TETRACAINE HCL 0.5% OPHTH SOLN 4ML BOTTLE ONE (13:10)
== END 2018-02-22 13:55 | disposition home or self-care (01) ==
LOC: ER 08:47
DX: E86.0 Dehydration (principal); I95.1 Orthostatic hypotension; H17.9 Unspecified corneal scar and opacity
CPT/HCPCS: 99285; 96361; 96374; 93005; 76700; 70450; 84484; 36415; 80307; 85025; 82150; 83690; 83735; 84100; 80053; J2405